=== PATIENT | female | born 1950 | race Caucasian/White ===

== ENCOUNTER 2021-09-24 09:44 | Inpatient (IN) ==
[2021-09-24] MEDS ORDERED: SODIUM CHLORIDE 0.9% 1000ML 1,000 ML IV ONE (10:11)
[2021-09-24 10:21] LABS: Basophils # (auto) 0.02 K/uL (0-0.2); Basophils % (auto) 0.3 %; Eosinophils # (auto) 0.07 K/uL (0-0.5); Eosinophils % (auto) 0.9 %; Hematocrit (blood only) 41.6 % (37-47); Immature Granulocytes # (auto) 0.02 K/uL (0.00-0.02); Immature Granulocytes % (auto) 0.3 %; Lymphocytes % (auto) 24.5 %; Mean Corpuscular Hgb Conc 36.1 g/dL (32-36); Mean Corpuscular Volume 88.7 fL (80-100); Mean Platelet Volume 9.7 fL (7.4-10.4); Monocytes # (auto) 0.38 K/uL (0.11-0.59); Monocytes % (auto) 4.9 %; Neutrophils # (auto) 5.35 K/uL (1.4-6.5); Neutrophils % (auto) 69.1 %; Platelet Count 251 K/uL (130-400); RDW Coefficient of Variation 12.7 % (11.5-14.5); RDW Standard Deviation 40.5 fL (36.4-46.3); Red Blood Count 4.69 M/uL (4.2-5.4); White Blood Count 7.74 K/uL (4.8-10.8)
[2021-09-24 10:47] LABS: Troponin I < 0.03 ng/ml (0-0.04)
[2021-09-24 10:55] LABS: Alanine Aminotransferase 19 U/L (7-52); Albumin Globulin Ratio 1.4 (0.9-2); Albumin Level 4.5 gm/dl (3.4-5.0); Alkaline Phosphatase 76 U/L (34-104); Anion Gap 8 (3-11); Aspartate Aminotransferase 20 U/L (13-39); BUN Creatinine Ratio 21.3 (10-20); Bilirubin,Total 0.4 mg/dl (0.2-1.0); Blood Urea Nitrogen 16 mg/dl (6-23); Calcium 9.7 mg/dl (8.5-10.1); Carbon Dioxide 26 mmol/L (21-32); Chloride 100 mmol/L (98-107); Creatinine Clr Calc Pharmacy 68.3 ml/min; Est GFR (African American) 93.6 ml/min; Est GFR (Non-African American) 80.8 ml/min; Globulin 3.2 gm/dl (2.5-4.0); Glucose 121 mg/dl (70-99(Fasting)); Lipase 65 U/L (11-82); Magnesium 1.7 mg/dl (1.7-2.4); Phosphorus 2.7 mg/dl (2.5-4.9); Potassium 3.8 mmol/L (3.5-5.1); Sodium 134 mmol/L (136-145); Total Protein 7.7 gm/dl (6.0-8.3)
[2021-09-24] MEDS ORDERED: OPTIRAY 320 125ml IV ONE (11:11)
--- NOTE | 2021-09-24 11:14 | XRay Report ---
SINGLE VIEW CHEST CLINICAL HISTORY: Atypical chest pain. FINDINGS: An AP, portable, upright chest radiograph is compared to study dated 06/21/2006. The examin ation is degraded by portable technique and patient rotation. The cardiomediastinal silhouette is unr emarkable noting atherosclerotic calcification of the thoracic aorta. Chronic interstitial thickening is similar to previous. There is mild bibasilar atelectasis. The lungs and pleural spaces are otherw ise clear. No pneumothorax is seen. The skeletal structures are osteopenic. The bony thorax is grossl y intact. IMPRESSION: No acute cardiopulmonary abnormality. ACT 112: Negative or not required by law. Electronically signed by: Nino Edward M.D. 09/24/2021 11:13 AM
--- NOTE | 2021-09-24 11:38 | CT Scan Report ---
UNENHANCED CT OF THE BRAIN; CT ANGIOGRAM OF THE BRAIN; CT ANGIOGRAM OF THE NECK CLINICAL HISTORY: Left-sided facial droop. Left lower extremity weakness. Aphasia. COMPARISON STUDY: MRI and MR angiogram of the brain dated 04/18/2011. TECHNIQUE: Unenhanced axial CT scan of the brain is performed. Subsequently, following the IV adminis tration of 119 of [address], CT angiogram of the head and neck was performed from the aortic arch t o the vertex. Images are reviewed in the axial, sagittal, and coronal planes. 3-D MIPS images are cre ated and assessed. IV contrast was administered without complication. All measurements were calculate d based on NASCET criteria. A dose lowering technique was utilized adhering to the principles of ALA RA. CT DOSE: 1156.25 mGy.cm FINDINGS: Brain parenchyma: There is age-related involutional change noting minimal subcortical periventricular microangiopathic disease. There is loss of elizondo-white matter differentiation identified in the right frontotemporal region consistent with subacute ischemia. This also involves the right caudate head. No hemorrhage or mass effect is identified. There is no evidence of enhancing mass lesion on the tricia ogram phase images. The ventricles, sulci, and cisterns are prominent secondary to involutional alicea e. No extra-axial fluid collection is seen. Thoracic aorta: There is mild atherosclerotic calcification of the thoracic aorta. Visualized portion s of the thoracic aorta are normal in caliber. The aortic arch demonstrates standard 3-vessel anatomy . Right carotid arterial system: There is atherosclerotic plaque throughout the right common carotid ar wilbert. There is slightly less than 50% luminal narrowing of the proximal right common carotid artery s een on axial image #109. The remainder of the right common carotid artery is widely patent. 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 There is high-grade stenosis with only trace flow at the origin of the right external cerrato tid artery. The remainder of the right external carotid artery is patent. Left carotid arterial system: The left common carotid artery is patent. Atherosclerotic plaque causes less than 50% luminal narrowing of the midportion. Atherosclerotic plaque is also seen in the caroti d bulb in the proximal internal carotid artery. This causes less than 50% luminal narrowing of the pr oximal ICA. The remainder of the internal carotid artery is widely patent, as is the left external ca rotid artery. Vertebral arteries: The vertebral arteries are widely patent bilaterally and codominant. Subclavian arteries: Widely patent bilaterally. Intracranial vasculature: There is atherosclerotic calcification of the cavernous carotid arteries. 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 There is reconsti tution of flow below the [place], likely via retrograde flow through the anterior communicat ing artery. The proximal right middle cerebral artery is patent. There are occluded branches of the r ight middle cerebral artery in the right frontotemporal region. The left common carotid artery is wid fidencio patent at the skull base. Both anterior cerebral arteries and the left middle cerebral artery are widely patent. The vertebrobasilar system and posterior cerebral arteries are widely patent. The derek tebral arteries are codominant. No aneurysm is seen throughout the intracranial circulation. Jugular veins: Patent bilaterally. Dural sinuses: Patent. Lung apices: Partially visualized upper lobe lung parenchyma appears clear. Soft tissues: The visualized pharyngeal soft tissues are normal in appearance noting angiographic pha se technique. The oropharyngeal airway appears widely patent. The thyroid gland is atrophic versus goldberg rgically absent. The salivary glands are normal in appearance. No cervical lymphadenopathy is seen. Skeletal structures: The skeletal structures are osteopenic. The calvarium appears intact. The cervic al spine is maintained noting mild spondylosis. No lytic or blastic lesion is seen. Orbits: The bony orbits are intact. Orbital contents are normal as visualized. Sinuses and mastoids: The paranasal sinuses are clear. The mastoid air cells are well pneumatized. IMPRESSION: 1. There is loss of elizondo-white matter differentiation identified in the right frontotemporal region c onsistent with a large subacute right MCA territory infarct. 2. No additional foci of acute ischemia are suspected. There is no hemorrhage or mass effect. 3. 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 This extends from the carotid b ulb to just below the [place] where there is reconstitution via retrograde flow. 4. The proximal right MCA is patent, with occlusion of peripheral peripheral right MCA branches in th e infarcted territory. 5. The remaining intracranial vessels are patent. 6. There is high-grade stenosis with near complete occlusion at the origin of the right external cerrato tid artery. 7. There is no evidence of hemodynamically significant stenosis in the neck within the left carotid s ystem or the vertebral arteries. ACT 112: Negative or not required by law. Electronically signed by: Nino Edward M.D. 09/24/2021 11:36 AM
[2021-09-24 11:47] LABS: Appearance Urine Clear (Clear); Bilirubin Urine Negative (Negative); Blood Urine Negative (Negative); Color Urine Yellow; Glucose Urine UA Negative (Negative); Ketones Urine Negative (Negative); Leukocyte Esterase Urine Negative (Negative); Nitrite Urine Negative (Negative); Protein Urine Negative (Negative); Specific Gravity Urine 1.016 (1.000-1.030); Urobilinogen Urine Negative (Negative)
--- NOTE | 2021-09-24 13:10 | History & Physical Report ---
Date of Service September 24, 2021 Assessment & Plan (1) CVA (cerebral vascular accident): Plan: CVA involving the right MCA territories. We will continue with aspirin 81 mg now and neurology has been consulted. Echocardiogram MRI. A1c as well as lipid profile. Neurochecks every 4. Swallow screen will be conducted. Physical therapy and Occupational Therapy evaluation. We will need to allow permissive hypertension. Otherwise ambulation with assist aspiration and fall precautions. (2) Hypertension, essential: Plan: We will hold patient's triamterene and hydrochlorothiazide to allow for perm issive hypertension. Monitor patient blood pressure closely Plan: 3 - Hypothyroidism Continue with levothyroxine 75 MCG. We will obtain a TSH for the patient as well. #4constipation Continue with home dose MiraLAX Admission and Anticipated Discharge Date Admission Date: September 24, 2021 History of Present Illness Chief Complaint: Slurred speech and stumbling gait Primary Care Provider: Davie Hoyt MD Patient is a 71-year-old female here in the company of her son with a past medical history of hypertension hypothyroidism constipation amaurosis fugax of the right eye presenting after brought in by the patient's son. Patient noted to have slurred speech left-sided facial droop mild weakness of the left lower extremity. Patient evaluated from the stroke standpoint noted to have a significant CVA on the left MCA territory as well as noted to have right ICA stenosis distally on CTA. Otherwise patient last known well 7 PM yesterday evening when per patient was shopping. She had significant headache over her right side of the forehead after which patient went home with her did have mild slowness of her speech however she wanted to sleep it off. She woke up in the morning with worsening slurred speech. Patient wanted to go to work today she drove herself to the [employer] parking lot where her son was able to catch up to her after hearing about patient's symptoms. As per the patient's son patient was severely slurred and had a drunken gait because of this he encouraged her to come to the hospital which patient did. Otherwise patient state that she drank coffee in the morning she did not have any trouble. States that she did notice today in the morning that she was looking to set up decorations and she cannot do that properly from her left upper extremity but she did not did not think much of it. States she just upset her and herself being in the hospital. Denies any associated chest pain lightheadedness palpitations. Denies any nausea vomiting or diarrhea denies any dysuria. States she has ambulated and to her she seems fine. Although noted to be having a drunken gait as per the patient's son at bedside. Discussed with vascular surgery here in [facility] who suggest no active intervention and medical management. Otherwise also discussed with Dr. Merna Mckeon at [facility] from neurology who was suggesting the same the patient will eventually need to follow-up as an outpatient and patient will need medical management currently. Discussed with patient's at bedside as well as patient's son and the patient herself about the current plan and management and are in agreement for further care here in the hospital. Allergies Allergy/AdvReac Type Severity Reaction Status Date / Time meperidine [From Demerol] AdvReac Intermediate Nausea Verified 09/24/21 12:18 Home Medications Medication Instructions Recorded Confirmed Type aspirin 81 mg tablet,delayed 81 mg PO DAILY 09/24/21 09/24/21 History release levothyroxine 75 mcg tablet 75 mcg PO DAILY 09/24/21 09/24/21 History omega-3 fatty acids 1,000 mg PO BID 09/24/21 09/24/21 History polyethylene glycol 3350 17 gram 17 g PO DAILY 09/24/21 09/24/21 History oral powder packet (Miralax) triamcinolone acetonide 0.1 % 1 applic TOPICAL DAILY PRN 09/24/21 09/24/21 History lotion triamterene 37.5 1 cap PO DAILY 09/24/21 09/24/21 History mg-hydrochlorothiazide 25 mg capsule Past Med/Surg History Medical History (Updated 09/24/21 @ 15:54 by Luis Bergeron MD) Constipation HTN (hypertension) Hypothyroidism Family History (Updated 09/24/21 @ 15:25 by Luis Bergeron MD) Father Hypertension Coronary heart disease Mother Stroke Social History (Updated 09/24/21 @ 14:36 by Luis Bergeron MD) Smoking Status: Former smoker Tobacco Type: Cigarettes Feels Safe at Home: Yes Review of Systems Review of Systems: All systems reviewed and negative other than as described in the history and physical above Physical Exam Physical Exam: Constitutional:WD/WN, vitals as abovewith slurred speech noted ENMT: external ear and nose normal, oropharynx normal Neck: trachea midline, no thyromegaly Respiratory: normal respiratory effort, lungs clear to auscultationAuscultation:no rhonchi and no wheezes Cardiovascular:RRR, 2 x 6 systolic ejection murmur most prominent in the aortic area, no edemaHeart Sounds:no murmur Gastrointestinal (Abdomen):normal bowel sounds, soft, nontender, no hepatosplenomegaly Musculoskeletal:no cyanosis or clubbing, extremities motor strength 5/5all extremities except Lt LE 4/5 Skin: no rashes, warm and dry Neurologic: Lt sided static facial droop, bilat, sensation intact and PERRL, EOMI, accommodation nl. Dysarthria noted Psychiatric: A+Ox3, euthymic affect Genitourinary:Not assessed Lymphatic: no cervical or axillary lymphadenopathy Results & Data Results & Data ([facility]) Vital Signs (Past 12 Hours) Vital Signs Temp Pulse Pulse Resp BP BP Pulse Ox 09/24/21 13:00 67 18 156/63 H 100 09/24/21 12:00 68 20 130/69 97 09/24/21 11:45 65 24 136/60 98 09/24/21 11:15 69 20 166/63 H 100 09/24/21 11:09 72 18 163/65 H 09/24/21 10:45 64 20 169/66 H 09/24/21 10:38 66 20 172/85 H 09/24/21 09:50 36.6 C 67 18 168/71 H 100 Laboratory Results Short CBC 09/24/21 Range/Units 10:10 WBC 7.74 (4.8-10.8) K/uL Hgb 15.0 (12.0-16.0) g/dL Hct 41.6 (37-47) % Plt Count 251 (130-400) K/uL BMP 09/24/21 10:10 Sodium 134 L Potassium 3.8 Chloride 100 Carbon Dioxide 26 BUN 16 Creatinine 0.75 Glucose 121 H Calcium 9.7 Cardiac Enzymes 09/24/21 Range/Units 10:10 Troponin I < 0.03 (0-0.04) ng/ml Liver Function 09/24/21 Range/Units 10:10 Total Bilirubin 0.4 (0.2-1.0) mg/dl AST 20 (13-39) U/L ALT 19 (7-52) U/L Alkaline Phosphatase 76 (34-104) U/L Albumin 4.5 (3.4-5.0) gm/dl Urine 09/24/21 Range/Units 11:32 Urine Color Yellow Urine Appearance Clear (Clear) Urine pH 7.0 (4.5-7.5) Ur Specific [place] 1.016 (1.000-1.030) Urine Protein Negative (Negative) Urine Glucose (UA) Negative (Negative) Diagnostic Findings Chest X-Ray 09/24/21 10:06 SINGLE VIEW CHEST CLINICAL HISTORY: Atypical chest pain. FINDINGS: An AP, portable, upright chest radiograph is compared to study dated 08/22/2005. The examination is degraded by portable technique and patient rotation. The cardiomediastinal silhouette is unremarkable noting atherosclerotic calcification of the thoracic aorta. Chronic interstitial thickening is similar to previous. There is mild bibasilar atelectasis. The lungs and pleural spaces are otherwise clear. No pneumothorax is seen. The skeletal structures are osteopenic. The bony thorax is grossly intact. IMPRESSION: No acute cardiopulmonary abnormality. ACT 112: Negative or not required by law. Electronically signed by: Nino Edward M.D. 09/24/2021 11:[address] 09/24/21 10:[address] OF THE BRAIN; CT ANGIOGRAM OF THE BRAIN; CT ANGIOGRAM OF THE NECK CLINICAL HISTORY: Left-sided facial droop. Left lower extremity weakness. Aphasia. COMPARISON STUDY: MRI and MR angiogram of the brain dated 04/18/2011. TECHNIQUE: Unenhanced axial CT scan of the brain is performed. Subsequently, following the IV administration of 119 of Optiray 320, CT angiogram of the head and neck was performed from the aortic arch to the vertex. Images are reviewed in the axial, sagittal, and coronal planes. 3-D MIPS images are created and assessed. IV contrast was administered without complication. All measurements were calculated based on NASCET criteria. A dose lowering technique was utilized adhering to the principles of ALARA. CT DOSE: 1156.25 mGy.cm FINDINGS: Brain parenchyma: There is age-related involutional change noting minimal subcortical periventricular microangiopathic disease. There is loss of elizondo-whi te matter differentiation identified in the right frontotemporal region consistent with subacute ischemia. This also involves the right caudate head. No hemorrhage or mass effect is identified. There is no evidence of enhancing mass lesion on the angiogram phase images. The ventricles, sulci, and cisterns are prominent secondary to involutional change. No extra-axial fluid collection is seen. Thoracic aorta: There is mild atherosclerotic calcification of the thoracic aorta. Visualized portions of the thoracic aorta are normal in caliber. The aortic arch demonstrates standard 3-vessel anatomy. Right carotid arterial system: There is atherosclerotic plaque throughout the right common carotid artery. There is slightly less than 50% luminal narrowing of the proximal right common carotid artery seen on axial image #109. The remainder of the right common carotid artery is widely patent. 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 There is high-grade stenosis with only trace flow at the origin of the right external carotid artery. The remainder of the right external carotid artery is patent. Left carotid arterial system: The left common carotid artery is patent. Atherosclerotic plaque causes less than 50% luminal narrowing of the midportion. Atherosclerotic plaque is also seen in the carotid bulb in the proximal internal carotid artery. This causes less than 50% luminal narrowing of the proximal ICA. The remainder of the internal carotid artery is widely patent, as is the left external carotid artery. Vertebral arteries: The vertebral arteries are widely patent bilaterally and codominant. Subclavian arteries: Widely patent bilaterally. Intracranial vasculature: There is atherosclerotic calcification of the cavernous carotid arteries. 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 There is reconstitution of flow below the [place], likely via retrograde flow through the anterior communicating artery. The proximal right middle cerebral artery is patent. There are occluded branches of the right middle cerebral artery in the right frontotemporal region. The left common carotid artery is widely patent at the skull base. Both anterior cerebral arteries and the left middle cerebral artery are widely patent. The vertebrobasilar system and posterior cerebral arteries are widely patent. The vertebral arteries are codominant. No aneurysm is seen throughout the intracranial circulation. Jugular veins: Patent bilaterally. Dural sinuses: Patent. Lung apices: Partially visualized upper lobe lung parenchyma appears clear. Soft tissues: The visualized pharyngeal soft tissues are normal in appearance noting angiographic phase technique. The oropharyngeal airway appears widely patent. The thyroid gland is atrophic versus surgically absent. The salivary glands are normal in appearance. No cervical lymphadenopathy is seen. Skeletal structures: The skeletal structures are osteopenic. The calvarium appears intact. The cervical spine is maintained noting mild spondylosis. No lytic or blastic lesion is seen. Orbits: The bony orbits are intact. Orbital contents are normal as visualized. Sinuses and mastoids: The paranasal sinuses are clear. The mastoid air cells are well pneumatized. IMPRESSION: 1. There is loss of elizondo-white matter differentiation identified in the right frontotemporal region consistent with a large subacute right MCA territory infarct. 2. No additional foci of acute ischemia are suspected. There is no hemorrhage or mass effect. 3. 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 This extends from the carotid bulb to just below the [place] where there is reconstitution via retrograde flow. 4. The proximal right MCA is patent, with occlusion of peripheral peripheral right MCA branches in the infarcted territory. 5. The remaining intracranial vessels are patent. 6. There is high-grade stenosis with near complete occlusion at the origin of the right external carotid artery. 7. There is no evidence of hemodynamically significant stenosis in the neck w ithin the left carotid system or the vertebral arteries. ACT 112: Negative or not required by law. Electronically signed by: Nino Edward M.D. 09/24/2021 11:36 AM Head CTA 09/24/21 10:[address] OF THE BRAIN; CT ANGIOGRAM OF THE BRAIN; CT ANGIOGRAM OF THE NECK CLINICAL HISTORY: Left-sided facial droop. Left lower extremity weakness. Aphasia. COMPARISON STUDY: MRI and MR angiogram of the brain dated 04/18/2011. TECHNIQUE: Unenhanced axial CT scan of the brain is performed. Subsequently, following the IV administration of 119 of Optiray 320, CT angiogram of the head and neck was performed from the aortic arch to the vertex. Images are reviewed in the axial, sagittal, and coronal planes. 3-D MIPS images are created and assessed. IV contrast was administered without complication. All measurements were calculated based on NASCET criteria. A dose lowering technique was utilized adhering to the principles of ALARA. CT DOSE: 1156.25 mGy.cm FINDINGS: Brain parenchyma: There is age-related involutional change noting minimal subcortical periventricular microangiopathic disease. There is loss of elizondo- white matter differentiation identified in the right frontotemporal region consistent with subacute ischemia. This also involves the right caudate head. No hemorrhage or mass effect is identified. There is no evidence of enhancing mass lesion on the angiogram phase images. The ventricles, sulci, and cisterns are prominent secondary to involutional change. No extra-axial fluid collection is seen. Thoracic aorta: There is mild atherosclerotic calcification of the thoracic aorta. Visualized portions of the thoracic aorta are normal in caliber. The aortic arch demonstrates standard 3-vessel anatomy. Right carotid arterial system: There is atherosclerotic plaque throughout the right common carotid artery. There is slightly less than 50% luminal narrowing of the proximal right common carotid artery seen on axial image #109. The remainder of the right common carotid artery is widely patent. 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 There is high-grade stenosis with only trace flow at the origin of the right external carotid artery. The remainder of the right external carotid artery is patent. Left carotid arterial system: The left common carotid artery is patent. Atherosclerotic plaque causes less than 50% luminal narrowing of the midportion. Atherosclerotic plaque is also seen in the carotid bulb in the proximal internal carotid artery. This causes less than 50% luminal narrowing of the proximal ICA. The remainder of the internal carotid artery is widely patent, as is the left external carotid artery. Vertebral arteries: The vertebral arteries are widely patent bilaterally and codominant. Subclavian arteries: Widely patent bilaterally. Intracranial vasculature: There is atherosclerotic calcification of the cavernous carotid arteries. 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 There is reconstitution of flow below the [place], likely via retrograde flow through the anterior communicating artery. The proximal right middle cerebral artery is patent. There are occluded branches of the right middle cerebral artery in the right frontotemporal region. The left common carotid artery is widely patent at the skull base. Both anterior cerebral arteries and the left middle cerebral artery are widely patent. The vertebrobasilar system and posterior cerebral arteries are widely patent. The vertebral arteries are codominant. No aneurysm is seen throughout the intracranial circulation. Jugular veins: Patent bilaterally. Dural sinuses: Patent. Lung apices: Partially visualized upper lobe lung parenchyma appears clear. Soft tissues: The visualized pharyngeal soft tissues are normal in appearance noting angiographic phase technique. The oropharyngeal airway appears widely patent. The thyroid gland is atrophic versus surgically absent. The salivary glands are normal in appearance. No cervical lymphadenopathy is seen. Skeletal structures: The skeletal structures are osteopenic. The calvarium appears intact. The cervical spine is maintained noting mild spondylosis. No lytic or blastic lesion is seen. Orbits: The bony orbits are intact. Orbital contents are normal as visualized. Sinuses and mastoids: The paranasal sinuses are clear. The mastoid air cells are well pneumatized. IMPRESSION: 1. There is loss of elizondo-white matter differentiation identified in the right frontotemporal region consistent with a large subacute right MCA territory infarct. 2. No additional foci of acute ischemia are suspected. There is no hemorrhage or mass effect. 3. 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 This extends from the carotid bulb to just below the [place] where there is reconstitution via retrograde flow. 4. The proximal right MCA is patent, with occlusion of peripheral peripheral right MCA branches in the infarcted territory. 5. The remaining intracranial vessels are patent. 6. There is high-grade stenosis with near complete occlusion at the origin of the right external carotid artery. 7. There is no evidence of hemodynamically significant stenosis in the neck within the left carotid system or the vertebral arteries. ACT 112: Negative or not required by law. Electronically signed by: Nino Edward M.D. 09/24/2021 11:36 AM Neck CTA 09/24/21 10:[address] OF THE BRAIN; CT ANGIOGRAM OF THE BRAIN; CT ANGIOGRAM OF THE NECK CLINICAL HISTORY: Left-sided facial droop. Left lower extremity weakness. Aphasia. COMPARISON STUDY: MRI and MR angiogram of the brain dated 04/18/2011. TECHNIQUE: Unenhanced axial CT scan of the brain is performed. Subsequently, following the IV administration of 119 of Optiray 320, CT angiogram of the head and neck was performed from the aortic arch to the vertex. Images are reviewed in the axial, sagittal, and coronal planes. 3-D MIPS images are created and assessed. IV contrast was administered without complication. All measurements were calculated based on NASCET criteria. A dose lowering technique was utilized adhering to the principles of ALARA. CT DOSE: 1156.25 mGy.cm FINDINGS: Brain parenchyma: There is age-related involutional change noting minimal subcortical periventricular microangiopathic disease. There is loss of elizondo- white matter differentiation identified in the right frontotemporal region consistent with subacute ischemia. This also involves the right caudate head. No hemorrhage or mass effect is identified. There is no evidence of enhancing mass lesion on the angiogram phase images. The ventricles, sulci, and cisterns are prominent secondary to involutional change. No extra-axial fluid collection is seen. Thoracic aorta: There is mild atherosclerotic calcification of the thoracic aorta. Visualized portions of the thoracic aorta are normal in caliber. The aortic arch demonstrates standard 3-vessel anatomy. Right carotid arterial system: There is atherosclerotic plaque throughout the right common carotid artery. There is slightly less than 50% luminal narrowing of the proximal right common carotid artery seen on axial image #109. The remainder of the right common carotid artery is widely patent. 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 There is high-grade stenosis with only trace flow at the origin of the right external carotid artery. The remainder of the right external carotid artery is patent. Left carotid arterial system: The left common carotid artery is patent. A therosclerotic plaque causes less than 50% luminal narrowing of the midportion. Atherosclerotic plaque is also seen in the carotid bulb in the proximal internal carotid artery. This causes less than 50% luminal narrowing of the proximal ICA. The remainder of the internal carotid artery is widely patent, as is the left external carotid artery. Vertebral arteries: The vertebral arteries are widely patent bilaterally and codominant. Subclavian arteries: Widely patent bilaterally. Intracranial vasculature: There is atherosclerotic calcification of the cavernous carotid arteries. 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 There is reconstitution of flow below the [place], likely via retrograde flow through the anterior communicating artery. The proximal right middle cerebral artery is patent. There are occluded branches of the right middle cerebral artery in the right frontotemporal region. The left common carotid artery is widely patent at the skull base. Both anterior cerebral arteries and the left middle cerebral artery are widely patent. The vertebrobasilar system and posterior cerebral arteries are widely patent. The vertebral arteries are codominant. No aneurysm is seen throughout the intracranial circulation. Jugular veins: Patent bilaterally. Dural sinuses: Patent. Lung apices: Partially visualized upper lobe lung parenchyma appears clear. Soft tissues: The visualized pharyngeal soft tissues are normal in appearance noting angiographic phase technique. The oropharyngeal airway appears widely patent. The thyroid gland is atrophic versus surgically absent. The salivary glands are normal in appearance. No cervical lymphadenopathy is seen. Skeletal structures: The skeletal structures are osteopenic. The calvarium appears intact. The cervical spine is maintained noting mild spondylosis. No lytic or blastic lesion is seen. Orbits: The bony orbits are intact. Orbital contents are normal as visualized. Sinuses and mastoids: The paranasal sinuses are clear. The mastoid air cells are well pneumatized. IMPRESSION: 1. There is loss of elizondo-white matter differentiation identified in the right frontotemporal region consistent with a large subacute right MCA territory infarct. 2. No additional foci of acute ischemia are suspected. There is no hemorrhage or mass effect. 3. 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 This extends from the carotid bulb to just below the [place] where there is reconstitution via retrograde flow. 4. The proximal right MCA is patent, with occlusion of peripheral peripheral right MCA branches in the infarcted territory. 5. The remaining intracranial vessels are patent. 6. There is high-grade stenosis with near complete occlusion at the origin of the right external carotid artery. 7. There is no evidence of hemodynamically significant stenosis in the neck within the left carotid system or the vertebral arteries. ACT 112: Negative or not required by law. Electronically signed by: Nino Edward M.D. 09/24/2021 11:36 AM ECG Additional Comments: NSR at 73 BMP. [address]. No Significant ST-T changes. Code Status & VTE Plan Code Status Full code VTE Prophylaxis Plan VTE Prophylaxis will be ordered: Yes
--- NOTE | 2021-09-24 15:16 | Emergency Department Note ---
Impression & Plan CVA (cerebral vascular accident), HTN (hypertension), Carotid artery stenosis ED Provider Note NAME: EVA ZAMORA AGE: 71 SEX: F ARRIVES VIA: Ambulance INFORMANT: Patient, ED PROVIDER(S): Chilo Cruz MD CHIEF COMPLAINT: Stroke symptoms since last night. PLAN: Disposition: Admit MEDICAL DECISION MAKING: The patient is a pleasant 71-year-old woman with a pmhx of HTN and report of remote right "eye stroke" on daily ASA who presents emergency department for evaluation of strokelike symptoms which were first noticed last night with her last known well being approximately 7 PM. The patient noted to have slurred speech left-sided facial droop around 11 PM by her when he awoke from a nap but despite his urging to come to the hospital she resisted this and went to sleep. In the morning he noted that she continued to have slurred again urged her to come to the hospital but she declined this and wanted to go to work at [facility] [employer] and so drove herself to work. However the contacted the son who called her and also grew concerned because of her continued slurred speech and so EMS was called and met her at [facility] where she ultimately was agreeable to come to the hospital. On arrival the patient is fatigued appearing but no acute distress, afebrile stable vital signs. She appears clinically dry. She does exhibit left lower facial weakness with dysarthria and moderate aphasia. She does have left lower extremity drift with 4/5 strength. Given the patient's last known well was over 12 hours ago a stroke alert was deferred however her CTA of her head and neck were expedited. These did not show evidence of subacute stroke within the right MCA territory. There is no proximal MCA occlusion though peripheral occlusions were noted. Note was also made MARKIE complete thrombosis, RECA stensois. The patient, her , and son were in agreement with plan for admission. EKG without overt acute ischemia. CXR negative for acute cardiopulmonary process. WBC, H/H, platelets wnl. Chemistry without acidosis. Electrolytes unremarkable. LFTs without significant abnormality. Troponin negative/undetectable. TSH wnl. UA without convincing evidence of infection. Covid-19 RNA, NAAT negative. Case was discussed with [facility] PAC, with Dr. Lai Goodrich hospitalist who will evaluate the patient for admission. Triage Nursing notes reviewed and agree them. Prior medical records reviewed Vital Signs: reviewed and remarkable for hypertension. Differential diagnosis: Infection, dehydration, metabolic abnormality, hypo/hyperglycemia, electrolyte disturbance, anemia, hypoxia, cardiac sources, intracerebral event, toxicologic, neurologic, as well as other pathologies. ER treatment provided: See below. Diagnostics interpreted by me: ECG: NSR, 73 bpm, no ectopy, nonspecific TWA, no overt ST elevation or depression. Cardiac Monitoring: An order for continuous cardiac monitoring was placed and demonstrated NSR, 73 bpm, no ectopy. Laboratory studies: See below Imaging studies: See below Consultation(s): Martina tSevens, K[facility] PAC, with Dr. Lai Goodrich hospitalist who will evaluate the patient for admission. HPI: The patient is a pleasant 71-year-old woman with a pmhx of HTN and report of remote right "eye stroke" on daily ASA who presents emergency department for evaluation of strokelike symptoms which were first noticed last night with her last known well being approximately 7 PM. The patient noted to have slurred speech left-sided facial droop around 11 PM by her when he awoke from a nap but despite his urging to come to the hospital she resisted this and went to sleep. In the morning he noted that she continued to have slurred again urged her to come to the hospital but she declined this and wanted to go to work at [employer] and so drove herself to work. However the contacted the son who called her and also grew concerned because of her continued slurred speech and so EMS was called and met her at [facility] where she ultimately was agreeable to come to the hospital. ROS: See above HPI for pertinent positives & negatives. A total of 10 systems reviewed and were otherwise negative. VITALS:See Below PHYSICAL EXAMINATION: GENERAL: Awake, alert, fatigued-appearing, in no distress HENT: Normocephalic, atraumatic. Oropharynx with dry mucous membranes and otherwise unremarkable. EYES: Normal conjunctiva. Sclera non-icteric. EOMI. No nystamgus. PEARRL. NECK: Supple. No nuchal rigidity. FROM. No JVD. RESPIRATORY: Clear to auscultation. CARDIAC: Regular rate, normal rhythm. Extremities warm and well perfused. Pulses equal. ABDOMEN: Soft, non-distended. No tenderness to palpation. No rebound or guarding. No masses. RECTAL: Deferred. MUSCULOSKELETAL: Chest examination reveals no tenderness. The back is symmetrical on inspection without obvious abnormality. There is no CVA tenderness to palpation. No joint edema. LOWER EXTREMITIES: Calves are equal size bilaterally and non-tender. No edema. No discoloration. NEURO: Left lower facial weakness/droop with mild dysarthria. Mild aphasia/word finding difficulty. She does have left lower extremity drift with 4/5 strength. SKIN: No rash or jaundice noted. Chilo Cruz MD Past Med/Surg History Medical History Constipation HTN (hypertension) Hypothyroidism Family History Father Hypertension Coronary heart disease Mother Stroke Social History Smoking Status: Former smoker Tobacco Type: Cigarettes Hx Alcohol Use: No Hx Substance Use: No Preferred Language: Sami Communication Ability: Impaired Trouble Tracer Required: No Beliefs That Will Affect Care: None Current Living Situation: Spouse Current Living Situation Comment: lives with spouse- oleg Feels Safe at Home: Yes Safety Concerns: Feels Safe At This Time Assistive Devices: Glasses Allergies Allergies Allergy/AdvReac Type Severity Reaction Status Date / Time meperidine [From Demerol] AdvReac Intermediate Nausea Verified 09/24/21 12:18 Home Meds Home Medications Medication Instructions Recorded Confirmed aspirin 81 mg tablet,delayed 81 mg PO DAILY 09/24/21 09/24/21 release levothyroxine 75 mcg tablet 75 mcg PO DAILY 09/24/21 09/24/21 omega-3 fatty acids 1,000 mg PO BID 09/24/21 09/24/21 polyethylene glycol 3350 17 gram 17 g PO DAILY 09/24/21 09/24/21 oral powder packet (Miralax) triamcinolone acetonide 0.1 % 1 applic TOPICAL DAILY PRN 09/24/21 09/24/21 lotion triamterene 37.5 1 cap PO DAILY 09/24/21 09/24/21 mg-hydrochlorothiazide 25 mg capsule Results & Data (ED) Vital Signs Vital Signs - 24 hr 09/24/21 09:50 09/24/21 09:52 09/24/21 10:38 Temperature 36.6 C Temperature Source Oral Pulse Rate 67 66 Pulse Rate from SpO2 Sensor Pulse Rhythm Regular Pulse Strength Normal Respiratory Rate 18 20 Respiratory Effort / Characteristics Non-Labored Respiratory Depth Normal Respiratory Pattern Regular Blood Pressure 168/71 H 172/85 H Blood Pressure Mean 103 114 Blood Pressure Position Sitting Pulse Oximetry 100 Oxygen Delivery Method Room Air Room Air Sepsis Recent Fever Within 48 Hours No Sepsis New/Unexplained Change in Mental Status No Sepsis Action Taken by Nursing No Action Required 09/24/21 10:45 09/24/21 11:09 09/24/21 11:15 Temperature Temperature Source Pulse Rate 64 72 69 Pulse Rate from SpO2 Sensor 69 Pulse Rhythm Pulse Strength Respiratory Rate 20 18 20 Respiratory Effort / Characteristics Respiratory Depth Respiratory Pattern Blood Pressure 169/66 H 163/65 H 166/63 H Blood Pressure Mean 100 97 97 Blood Pressure Position Pulse Oximetry 100 Oxygen Delivery Method Sepsis Recent Fever Within 48 Hours Sepsis New/Unexplained Change in Mental Status Sepsis Action Taken by Nursing 09/24/21 11:45 09/24/21 12:00 Temperature Temperature Source Pulse Rate 65 68 Pulse Rate from SpO2 Sensor 65 67 Pulse Rhythm Pulse Strength Respiratory Rate 24 20 Respiratory Effort / Characteristics Respiratory Depth Respiratory Pattern Blood Pressure 136/60 130/69 Blood Pressure Mean 85 89 Blood Pressure Position Pulse Oximetry 98 97 Oxygen Delivery Method Sepsis Recent Fever Within 48 Hours Sepsis New/Unexplained Change in Mental Status Sepsis Action Taken by Nursing Laboratory Data Attestation: I reviewed the patient's lab results. Result diagrams: 09/24/21 10:10 09/24/21 10:10 Lab Results 09/24/21 09/24/21 09/24/21 Range/Units 10:10 10:10 10:10 WBC 7.74 (4.8-10.8) K/uL RBC 4.69 (4.2-5.4) M/uL Hgb 15.0 (12.0-16.0) g/dL Hct 41.6 (37-47) % MCV 88.7 (80-100) fL MCH 32.0 (25-34) pg MCHC 36.1 H (32-36) g/dL RDW Std Deviation 40.5 (36.4-46.3) fL RDW Coeff of Jose Martin 12.7 (11.5-14.5) % Plt Count 251 (130-400) K/uL MPV 9.7 (7.4-10.4) fL Immature Gran % (Auto) 0.3 % Neut % (Auto) 69.1 % Lymph % (Auto) 24.5 % [place] % (Auto) 4.9 % Eos % (Auto) 0.9 % Baso % (Auto) 0.3 % Neut # (Auto) 5.35 (1.4-6.5) K/uL Lymph # (Auto) 1.90 (1.2-3.4) K/uL [place] # (Auto) 0.38 (0.11-0.59) K/uL Eos # (Auto) 0.07 (0-0.5) K/uL Baso # (Auto) 0.02 (0-0.2) K/uL Immature Gran # (Auto) 0.02 (0.00-0.02) K/uL Sodium 134 L (136-145) mmol/L Potassium 3.8 (3.5-5.1) mmol/L Chloride 100 (98-107) mmol/L Carbon Dioxide 26 (21-32) mmol/L Anion Gap 8 (3-11) BUN 16 (6-23) mg/dl Creatinine 0.75 (0.6-1.2) mg/dl Est Cr Clr Drug Dosing 68.3 ml/min Est GFR ( Amer) 93.6 ml/min Est GFR (Non-Af Amer) 80.8 ml/min BUN/Creatinine Ratio 21.3 H (10-20) Glucose 121 H (70-99(Fasting)) mg/dl Calcium 9.7 (8.5-10.1) mg/dl Phosphorus 2.7 (2.5-4.9) mg/dl Magnesium 1.7 (1.7-2.4) mg/dl Total Bilirubin 0.4 (0.2-1.0) mg/dl AST 20 (13-39) U/L ALT 19 (7-52) U/L Alkaline Phosphatase 76 (34-104) U/L Troponin I < 0.03 (0-0.04) ng/ml Total Protein 7.7 (6.0-8.3) gm/dl Albumin 4.5 (3.4-5.0) gm/dl Globulin 3.2 (2.5-4.0) gm/dl Albumin/Globulin Ratio 1.4 (0.9-2) Lipase 65 (11-82) U/L TSH 1.145 (0.300-4.500) uIu/ml Urine Color Urine Appearance (Clear) Urine pH (4.5-7.5) Ur Specific [place] (1.000-1.030) Urine Protein (Negative) Urine Glucose (UA) (Negative) Urine Ketones (Negative) Urine Blood (Negative) Urine Nitrite (Negative) Urine Bilirubin (Negative) Urine Urobilinogen (Negative) Ur Leukocyte Esterase (Negative) SARS-CoV-2, RNA, NAAT (NEGATIVE) 09/24/21 09/24/21 Range/Units 11:32 12:55 WBC (4.8-10.8) K/uL RBC (4.2-5.4) M/uL Hgb (12.0-16.0) g/dL Hct (37-47) % MCV (80-100) fL MCH (25-34) pg MCHC (32-36) g/dL RDW Std Deviation (36.4-46.3) fL RDW Coeff of Jose Martin (11.5-14.5) % Plt Count (130-400) K/uL MPV (7.4-10.4) fL Immature Gran % (Auto) % Neut % (Auto) % Lymph % (Auto) % [place] % (Auto) % Eos % (Auto) % Baso % (Auto) % Neut # (Auto) (1.4-6.5) K/uL Lymph # (Auto) (1.2-3.4) K/uL [place] # (Auto) (0.11-0.59) K/uL Eos # (Auto) (0-0.5) K/uL Baso # (Auto) (0-0.2) K/uL Immature Gran # (Auto) (0.00-0.02) K/uL Sodium (136-145) mmol/L Potassium (3.5-5.1) mmol/L Chloride (98-107) mmol/L Carbon Dioxide (21-32) mmol/L Anion Gap (3-11) BUN (6-23) mg/dl Creatinine (0.6-1.2) mg/dl Est Cr Clr Drug Dosing ml/min Est GFR ( Amer) ml/min Est GFR (Non-Af Amer) ml/min BUN/Creatinine Ratio (10-20) Glucose (70-99(Fasting)) mg/dl Calcium (8.5-10.1) mg/dl Phosphorus (2.5-4.9) mg/dl Magnesium (1.7-2.4) mg/dl Total Bilirubin (0.2-1.0) mg/dl AST (13-39) U/L ALT (7-52) U/L Alkaline Phosphatase (34-104) U/L Troponin I (0-0.04) ng/ml Total Protein (6.0-8.3) gm/dl Albumin (3.4-5.0) gm/dl Globulin (2.5-4.0) gm/dl Albumin/Globulin Ratio (0.9-2) Lipase (11-82) U/L TSH (0.300-4.500) uIu/ml Urine Color Yellow Urine Appearance Clear (Clear) Urine pH 7.0 (4.5-7.5) Ur Specific [place] 1.016 (1.000-1.030) Urine Protein Negative (Negative) Urine Glucose (UA) Negative (Negative) Urine Ketones Negative (Negative) Urine Blood Negative (Negative) Urine Nitrite Negative (Negative) Urine Bilirubin Negative (Negative) Urine Urobilinogen Negative (Negative) Ur Leukocyte Esterase Negative (Negative) SARS-CoV-2, RNA, NAAT NEGATIVE (NEGATIVE) Administered Medications Fish Oil ([place]-3 (Purified Fish Oil) 1 Gm Cap) 1 gm PO BID TOÑA Stop: 10/24/21 20:59 Last Admin: 09/24/21 20:39 Dose: Not Given Documented by: [id number] Sodium Chloride (Nss 1000ml) 1,000 mls @ 80 mls/hr IV .[id number] TOÑA Stop: 09/25/21 12:30 Last Admin: 09/24/21 18:32 Dose: 80 mls/hr Documented by: [id number] Discontinued Medications Aspirin (Aspirin 81 Mg Chew) 81 mg PO NOW STA Stop: 09/24/21 16:09 Last Admin: 09/24/21 16:26 Dose: 81 mg Documented by: [id number] Sodium Chloride (Nss 1000ml) 1,000 mls @ 999 mls/hr IV .[id number] ONE Stop: 09/24/21 11:11 Last Infusion: 09/24/21 11:22 Dose: 999 mls/hr Documented by: [id number] Admin: 09/24/21 10:21 Dose: 999 mls/hr Documented by: [id number] Ioversol (Optiray 320 125ml) 119 ml IV ONCE ONE Stop: 09/24/21 11:12 Last Admin: 09/24/21 11:11 Dose: 119 ml Documented by: [id number] Imaging Data Radiologist's Impression: Chest X-Ray 09/24/21 10:06 SINGLE VIEW CHEST CLINICAL HISTORY: Atypical chest pain. FINDINGS: An AP, portable, upright chest radiograph is compared to study dated 06/21/2006. The examination is degraded by portable technique and patient rotation. The cardiomediastinal silhouette is unremarkable noting atherosclerotic calcification of the thoracic aorta. Chronic interstitial thickening is similar to previous. There is mild bibasilar atelectasis. The lungs and pleural spaces are otherwise clear. No pneumothorax is seen. The skeletal structures are osteopenic. The bony thorax is grossly intact. IMPRESSION: No acute cardiopulmonary abnormality. ACT 112: Negative or not required by law. Electronically signed by: Nino Edward M.D. 09/24/2021 11:[address] 09/24/21 10:[address] OF THE BRAIN; CT ANGIOGRAM OF THE BRAIN; CT ANGIOGRAM OF THE NECK CLINICAL HISTORY: Left-sided facial droop. Left lower extremity weakness. Aphasia. COMPARISON STUDY: MRI and MR angiogram of the brain dated 04/18/2011. TECHNIQUE: Unenhanced axial CT scan of the brain is performed. Subsequently, following the IV administration of 119 of Optiray 320, CT angiogram of the head and neck was performed from the aortic arch to the vertex. Images are reviewed in the axial, sagittal, and coronal planes. 3-D MIPS images are created and assessed. IV contrast was administered without complication. All measurements were calculated based on NASCET criteria. A dose lowering technique was utilized adhering to the principles of ALARA. CT DOSE: 1156.25 mGy.cm FINDINGS: Brain parenchyma: There is age-related involutional change noting minimal subcor tical periventricular microangiopathic disease. There is loss of elizondo-white matter differentiation identified in the right frontotemporal region consistent with subacute ischemia. This also involves the right caudate head. No hemorrhage or mass effect is identified. There is no evidence of enhancing mass lesion on the angiogram phase images. The ventricles, sulci, and cisterns are prominent secondary to involutional change. No extra-axial fluid collection is seen. Thoracic aorta: There is mild atherosclerotic calcification of the thoracic aorta. Visualized portions of the thoracic aorta are normal in caliber. The aortic arch demonstrates standard 3-vessel anatomy. Right carotid arterial system: There is atherosclerotic plaque throughout the right common carotid artery. There is slightly less than 50% luminal narrowing of the proximal right common carotid artery seen on axial image #109. The remainder of the right common carotid artery is widely patent. 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 There is high-grade stenosis with only trace flow at the origin of the right external carotid artery. The remainder of the right external carotid artery is patent. Left carotid arterial system: The left common carotid artery is patent. Atherosclerotic plaque causes less than 50% luminal narrowing of the midportion. Atherosclerotic plaque is also seen in the carotid bulb in the proximal internal carotid artery. This causes less than 50% luminal narrowing of the proximal ICA. The remainder of the internal carotid artery is widely patent, as is the left external carotid artery. Vertebral arteries: The vertebral arteries are widely patent bilaterally and codominant. Subclavian arteries: Widely patent bilaterally. Intracranial vasculature: There is atherosclerotic calcification of the cavernous carotid arteries. 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 There is reconstitution of flow below the [place], likely via retrograde flow through the anterior communicating artery. The proximal right middle cerebral artery is patent. There are occluded branches of the right middle cerebral artery in the right frontotemporal region. The left common carotid artery is widely patent at the skull base. Both anterior cerebral arteries and the left middle cerebral artery are widely patent. The vertebrobasilar system and posterior cerebral arteries are widely patent. The vertebral arteries are codominant. No aneurysm is seen throughout the intracranial circulation. Jugular veins: Patent bilaterally. Dural sinuses: Patent. Lung apices: Partially visualized upper lobe lung parenchyma appears clear. Soft tissues: The visualized pharyngeal soft tissues are normal in appearance noting angiographic phase technique. The oropharyngeal airway appears widely patent. The thyroid gland is atrophic versus surgically absent. The salivary glands are normal in appearance. No cervical lymphadenopathy is seen. Skeletal structures: The skeletal structures are osteopenic. The calvarium appears intact. The cervical spine is maintained noting mild spondylosis. No lytic or blastic lesion is seen. Orbits: The bony orbits are intact. Orbital contents are normal as visualized. Sinuses and mastoids: The paranasal sinuses are clear. The mastoid air cells are well pneumatized. IMPRESSION: 1. There is loss of elizondo-white matter differentiation identified in the right frontotemporal region consistent with a large subacute right MCA territory infarct. 2. No additional foci of acute ischemia are suspected. There is no hemorrhage or mass effect. 3. 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 This extends from the carotid bulb to just below the [place] where there is reconstitution via retrograde flow. 4. The proximal right MCA is patent, with occlusion of peripheral peripheral right MCA branches in the infarcted territory. 5. The remaining intracranial vessels are patent. 6. There is high-grade stenosis with near complete occlusion at the origin of the right external carotid artery. 7. There is no evidence of hemodynamically significant stenosis in the neck within the left carotid system or the vertebral arteries. ACT 112: Negative or not required by law. Electronically signed by: Nino Edward M.D. 09/24/2021 11:36 AM Head CTA 09/24/21 10:[address] OF THE BRAIN; CT ANGIOGRAM OF THE BRAIN; CT ANGIOGRAM OF THE NECK CLINICAL HISTORY: Left-sided facial droop. Left lower extremity weakness. Aphasia. COMPARISON STUDY: MRI and MR angiogram of the brain dated 04/18/2011. TECHNIQUE: Unenhanced axial CT scan of the brain is performed. Subsequently, following the IV administration of 119 of Optiray 320, CT angiogram of the head and neck was performed from the aortic arch to the vertex. Images are reviewed in the axial, sagittal, and coronal planes. 3-D MIPS images are created and assessed. IV contrast was administered without complication. All measurements were calculated based on NASCET criteria. A dose lowering technique was utilized adhering to the principles of ALARA. CT DOSE: 1156.25 mGy.cm FINDINGS: Brain parenchyma: There is age-related involutional change noting minimal subcortical periventricular microangiopathic disease. There is loss of elizondo- white matter differentiation identified in the right frontotemporal region consistent with subacute ischemia. This also involves the right caudate head. No hemorrhage or mass effect is identified. There is no evidence of enhancing mass lesion on the angiogram phase images. The ventricles, sulci, and cisterns are prominent secondary to involutional change. No extra-axial fluid collection is seen. Thoracic aorta: There is mild atherosclerotic calcification of the thoracic aorta. Visualized portions of the thoracic aorta are normal in caliber. The aortic arch demonstrates standard 3-vessel anatomy. Right carotid arterial system: There is atherosclerotic plaque throughout the right common carotid artery. There is slightly less than 50% luminal narrowing of the proximal right common carotid artery seen on axial image #109. The remainder of the right common carotid artery is widely patent. 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 There is high-grade stenosis with only trace flow at the origin of the right external carotid artery. The remainder of the right external carotid artery is patent. Left carotid arterial system: The left common carotid artery is patent. Atherosclerotic plaque causes less than 50% luminal narrowing of the midportion. Atherosclerotic plaque is also seen in the carotid bulb in the proximal internal carotid artery. This causes less than 50% luminal narrowing of the proximal ICA. The remainder of the internal carotid artery is widely patent, as is the left external carotid artery. Vertebral arteries: The vertebral arteries are widely patent bilaterally and codominant. Subclavian arteries: Widely patent bilaterally. Intracranial vasculature: There is atherosclerotic calcification of the cav ernous carotid arteries. 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 There is reconstitution of flow below the [place], likely via retrograde flow through the anterior communicating artery. The proximal right middle cerebral artery is patent. There are occluded branches of the right middle cerebral artery in the right frontotemporal region. The left common carotid artery is widely patent at the skull base. Both anterior cerebral arteries and the left middle cerebral artery are widely patent. The vertebrobasilar system and posterior cerebral arteries are widely patent. The vertebral arteries are codominant. No aneurysm is seen throughout the i ntracranial circulation. Jugular veins: Patent bilaterally. Dural sinuses: Patent. Lung apices: Partially visualized upper lobe lung parenchyma appears clear. Soft tissues: The visualized pharyngeal soft tissues are normal in appearance noting angiographic phase technique. The oropharyngeal airway appears widely patent. The thyroid gland is atrophic versus surgically absent. The salivary glands are normal in appearance. No cervical lymphadenopathy is seen. Skeletal structures: The skeletal structures are osteopenic. The calvarium appears intact. The cervical spine is maintained noting mild spondylosis. No lytic or blastic lesion is seen. Orbits: The bony orbits are intact. Orbital contents are normal as visualized. Sinuses and mastoids: The paranasal sinuses are clear. The mastoid air cells are well pneumatized. IMPRESSION: 1. There is loss of elizondo-white matter differentiation identified in the right frontotemporal region consistent with a large subacute right MCA territory infarct. 2. No additional foci of acute ischemia are suspected. There is no hemorrhage or mass effect. 3. 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 This extends from the carotid bulb to just below the [place] where there is reconstitution via retrograde flow. 4. The proximal right MCA is patent, with occlusion of peripheral peripheral right MCA branches in the infarcted territory. 5. The remaining intracranial vessels are patent. 6. There is high-grade stenosis with near complete occlusion at the origin of the right external carotid artery. 7. There is no evidence of hemodynamically significant stenosis in the neck within the left carotid system or the vertebral arteries. ACT 112: Negative or not required by law. Electronically signed by: Nino Edward M.D. 09/24/2021 11:36 AM Neck CTA 09/24/21 10:[address] OF THE BRAIN; CT ANGIOGRAM OF THE BRAIN; CT ANGIOGRAM OF THE NECK CLINICAL HISTORY: Left-sided facial droop. Left lower extremity weakness. Aphasia. COMPARISON STUDY: MRI and MR angiogram of the brain dated 04/18/2011. TECHNIQUE: Unenhanced axial CT scan of the brain is performed. Subsequently, following the IV administration of 119 of Optiray 320, CT angiogram of the head and neck was performed from the aortic arch to the vertex. Images are reviewed in the axial, sagittal, and coronal planes. 3-D MIPS images are created and assessed. IV contrast was administered without complication. All measurements were calculated based on NASCET criteria. A dose lowering technique was utilized adhering to the principles of ALARA. CT DOSE: 1156.25 mGy.cm FINDINGS: Brain parenchyma: There is age-related involutional change noting minimal subcortical periventricular microangiopathic disease. There is loss of elizondo- white matter differentiation identified in the right frontotemporal region consistent with subacute ischemia. This also involves the right caudate head. No hemorrhage or mass effect is identified. There is no evidence of enhancing mass lesion on the angiogram phase images. The ventricles, sulci, and cisterns are prominent secondary to involutional change. No extra-axial fluid collection is seen. Thoracic aorta: There is mild atherosclerotic calcification of the thoracic aorta. Visualized portions of the thoracic aorta are normal in caliber. The aortic arch demonstrates standard 3-vessel anatomy. Right carotid arterial system: There is atherosclerotic plaque throughout the right common carotid artery. There is slightly less than 50% luminal narrowing of the proximal right common carotid artery seen on axial image #109. The remainder of the right common carotid artery is widely patent. 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 There is high-grade stenosis with only trace flow at the origin of the right external carotid artery. The remainder of the right external carotid artery is patent. Left carotid arterial system: The left common carotid artery is patent. Atherosclerotic plaque causes less than 50% luminal narrowing of the midportion. Atherosclerotic plaque is also seen in the carotid bulb in the proximal internal carotid artery. This causes less than 50% luminal narrowing of the proximal ICA. The remainder of the internal carotid artery is widely patent, as is the left external carotid artery. Vertebral arteries: The vertebral arteries are widely patent bilaterally and codominant. Subclavian arteries: Widely patent bilaterally. Intracranial vasculature: There is atherosclerotic calcification of the cavernous carotid arteries. 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 There is reconstitution of flow below the [place], likely via retrograde flow through the anterior communicating artery. The proximal right middle cerebral artery is patent. There are occluded branches of the right middle cerebral artery in the right frontotemporal region. The left common carotid artery is widely patent at the skull base. Both anterior cerebral arteries and the left middle cerebral artery are widely patent. The vertebrobasilar system and posterior cerebral arteries are widely patent. The vertebral arteries are codominant. No aneurysm is seen throughout the intracranial circulation. Jugular veins: Patent bilaterally. Dural sinuses: Patent. Lung apices: Partially visualized upper lobe lung parenchyma appears clear. Soft tissues: The visualized pharyngeal soft tissues are normal in appearance noting angiographic phase technique. The oropharyngeal airway appears widely patent. The thyroid gland is atrophic versus surgically absent. The salivary glands are normal in appearance. No cervical lymphadenopathy is seen. Skeletal structures: The skeletal structures are osteopenic. The calvarium appears intact. The cervical spine is maintained noting mild spondylosis. No lytic or blastic lesion is seen. Orbits: The bony orbits are intact. Orbital contents are normal as visualized. Sinuses and mastoids: The paranasal sinuses are clear. The mastoid air cells are well pneumatized. IMPRESSION: 1. There is loss of elizondo-white matter differentiation identified in the right frontotemporal region consistent with a large subacute right MCA territory i nfarct. 2. No additional foci of acute ischemia are suspected. There is no hemorrhage or mass effect. 3. 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 This extends from the carotid bulb to just below the [place] where there is reconstitution via retrograde flow. 4. The proximal right MCA is patent, with occlusion of peripheral peripheral right MCA branches in the infarcted territory. 5. The remaining intracranial vessels are patent. 6. There is high-grade stenosis with near complete occlusion at the origin of the right external carotid artery. 7. There is no evidence of hemodynamically significant stenosis in the neck within the left carotid system or the vertebral arteries. ACT 112: Negative or not required by law. Electronically signed by: Nino Edward M.D. 09/24/2021 11:36 AM Discharge Plan Visit Data Chief Complaint: Stroke/CVA Symptoms Stated Complaint: NUERO SX, STROKE SX ED Provider: Chilo Cruz Discharge Problem: CVA (cerebral vascular accident), HTN (hypertension), Carotid artery stenosis Patient Disposition: Admitted As Inpatient Discharge Instructions Interventions: ED Discharge Assessment Last Done: 09/24/21 16:28 Discharge Problem: CVA (cerebral vascular accident) Qualifiers: CVA mechanism: other Qualified Code(s): I63.89 - Other cerebral infarction HTN (hypertension) Qualifiers: Hypertension type: unspecified Qualified Code(s): I10 - Essential (primary) hypertension Carotid artery stenosis Qualifiers: Laterality: right Qualified Code(s): I65.21 - Occlusion and stenosis of right carotid artery
[2021-09-24] MEDS ORDERED: ASPIRIN 81 MG CHEW PO STA (16:08)
[2021-09-24] MEDS ORDERED: MAGNESIUM HYDROXIDE SUSP 30 ML UDC PO PRN (17:16)
[2021-09-24] MEDS ORDERED: POLYETHYLENE (MIRALAX) 17 GM PACK PO PRN (17:16)
[2021-09-24] MEDS ORDERED: ACETAMINOPHEN 325 MG TAB PO PRN (17:16)
[2021-09-24] MEDS ORDERED: ALUMINUM/MAGNESIUM SUSP 30 ML UDC PO PRN (17:16)
[2021-09-24] MEDS: SODIUM CHLORIDE 0.9% 1000ML 1,000 ML IV SCH (18:32)
[2021-09-24] MEDS: LORazepam 2 MG/1 ML VIAL IV STA ×2 (19:50→21:36)
[2021-09-24] MEDS: OMEGA-3 (PURIFIED FISH OIL) 1 GM CAP PO SCH (20:39)
[2021-09-24] MEDS ORDERED: CLOPIDOGREL BISULFATE 75 MG TAB PO ONE (20:47)
[2021-09-24] MEDS ORDERED: ASPIRIN 300 MG SUPP PR STA (21:06)
[2021-09-25] MEDS: LEVOTHYROXINE SODIUM 75 MCG TABLET PO SCH (05:30)
[2021-09-25 06:44] LABS: Basophils # (auto) 0.02 K/uL (0-0.2); Basophils % (auto) 0.3 %; Eosinophils # (auto) 0.07 K/uL (0-0.5); Hemoglobin 12.6 g/dL (12.0-16.0); Immature Granulocytes # (auto) 0.01 K/uL (0.00-0.02); Immature Granulocytes % (auto) 0.1 %; Lymphocytes # (auto) 1.87 K/uL (1.2-3.4); Mean Corpuscular Hemoglobin 31.5 pg (25-34); Mean Platelet Volume 9.9 fL (7.4-10.4); Monocytes # (auto) 0.36 K/uL (0.11-0.59); Neutrophils # (auto) 4.85 K/uL (1.4-6.5); Neutrophils % (auto) 67.6 %; Platelet Count 240 K/uL (130-400); RDW Coefficient of Variation 12.6 % (11.5-14.5); RDW Standard Deviation 41.8 fL (36.4-46.3); White Blood Count 7.18 K/uL (4.8-10.8)
[2021-09-25 07:54] LABS: Albumin Globulin Ratio 1.5 (0.9-2); Albumin Level 3.5 gm/dl (3.4-5.0); BUN Creatinine Ratio 22.4 (10-20); Bilirubin,Total 0.5 mg/dl (0.2-1.0); Calcium 8.5 mg/dl (8.5-10.1); Chol HDL Ratio 4.4 (0-5); Creatinine Clr Calc Pharmacy 86.4 ml/min; Est GFR (African American) 108.2 ml/min; Est GFR (Non-African American) 93.4 ml/min; Globulin 2.4 gm/dl (2.5-4.0); Magnesium 1.7 mg/dl (1.7-2.4); Potassium 3.6 mmol/L (3.5-5.1); Total Protein 5.9 gm/dl (6.0-8.3)
[2021-09-25 07:58] LABS: Estimated Average Glucose 126 mg/dl
--- NOTE | 2021-09-25 08:47 | Magnetic Resonance Report ---
MR brain wo con CLINICAL HISTORY: CVA TECHNIQUE: Multiplanar and multisequence MR images of the brain were obtained without intravenous con trast. Comparison: Comparison is made to CT head 09/24/2021 FINDINGS: Resected diffusion is seen in the right MCA territory. There is associated edema and mass effect with out evidence of midline shift. Ex vacuo ventriculomegaly and sulcal enlargement is noted compatible w ith diffuse encephalomalacia. There is no evidence of acute intraparenchymal hemorrhage. No extra axi al fluid collections are seen. The corpus callosum, pituitary gland, and cerebellar tonsils appear gr ossly unremarkable. Flow voids of the major intracranial arterial vessels are identified. The imaged portions of the para nasal sinuses, mastoid air cells, and orbits are unremarkable. IMPRESSION: Redemonstration of large MCA territory infarct without hemorrhagic transformation. ACT 112: Negative or not required by law. Electronically signed by: Conner Craven M.D. 09/25/2021 8:45 AM
[2021-09-25] MEDS: OMEGA-3 (PURIFIED FISH OIL) 1 GM CAP PO SCH ×2 (08:56→20:46)
[2021-09-25] MEDS: POLYETHYLENE (MIRALAX) 17 GM PACK PO SCH (08:56)
[2021-09-25] MEDS: SODIUM CHLORIDE 0.9% 1000ML 1,000 ML IV SCH (08:57)
[2021-09-25] MEDS ORDERED: CLOPIDOGREL BISULFATE 75 MG TAB PO SCH (09:00)
[2021-09-25] MEDS ORDERED: ASPIRIN 300 MG SUPP PR SCH (09:00)
[2021-09-25] MEDS ORDERED: ASPIRIN 81 MG ECTAB PO SCH (09:00)
--- NOTE | 2021-09-25 11:11 | Neurology Consultation ---
Date of Consultation September 25, 2021 Assessment & Plan (1) CVA (cerebral vascular accident): 1. MRI -large MCA stroke right 2. CTA head/neck with occlusion of right MCA branches 3. aspirin 81 mg and plavix 75 mg daily x 21 days then plavix for life 4. PT/OT speech for discharge needs 5. TTE- 60-65% no ASD 6. ZIO as outpatient 7. optimize HTN HLD DM LDL <70 follow up with neurology 4-6 weeks after discharge Frida Cook PAC schedule (2) Carotid artery stenosis: (3) HTN (hypertension): Supervising Physician Co-Signing Physician Notes I have seen and discussed above patient with Dr Frida Novoa, neurology. On exam she is awake and alert speech and language are normal no dysarthria naming repetition and commands are normal. There is right ptosis without myosis or mydriasis. Cannot reliably visualize the optic nerves. Motility was normal there is normal howell no visual extinction there is an minor flattening of the left nasolabial fold. Motor left upper extremity diffusely about 4 out of 5 with minor left drift and decreased left rapid alternating movements query minimal weakness of the left lower extremity. Symmetric reflexes left toe upgoing. No sensory loss to light touch no double simultaneous extinction. No calf swelling or tenderness. Impression right carotid occlusion with right anterior division MCA infarction. Continue risk factor modification. Dual antiplatelet therapy with aspirin and Plavix for 21 days then Plavix alone avoid hypotension. Recommend statin therapy with goal LDL of 70 or less. ZIO as an outpatient. Her she will need periodic ultrasound likely yearly to exclude left internal carotid stenosis. There is no evidence of carotid stenosis at present. The patient should see us in follow-up post discharge. I would recommend that she not return to driving until seen by us in the office and cleared by ophthalmology given that she could have some visual neglect. Will sign off Frdia Novoa MD History of Present Illness Reason for Consultation: CVA Requesting Physician: Natalio Anna MD Attending Physician: Natalio Anna MD History of Present Illness Mallory is a 71 year old female with a PMH-HTN, hypothyroidism, constipation, amaurosis fugax of the right eye who presented to [facility] ED 09/24/21. She had slurred speech left-sided facial droop mild weakness of the left lower extremity. Last known well 7 PM the evening prior to admission she was shopping. She had significant headache over her right side of the forehead and went home with her did have mild slowness of her speech however she wanted to sleep it off. She woke up in the morning with worsening slurred speech.She wanted to go to work today she drove herself to the [employer] parking lot where her son was able to catch up to her after hearing about patient's symptoms.She was severely slurred and had a drunken gait. She drank coffee that morning she did not have any trouble.She was looking to set up decorations and could not with her left upper extremity but she did not did not think much of it. discussed with vascular surgery here in [facility] who suggest no active intervention and medical management and with Dr. Merna Mckeon at [facility] from neurology who was suggesting the same the patient will eventually need to follow-up as an outpatient and patient will need medical management currently. Frida Novoa patient reported 2 days prior that she noted weakness in her left hand and her noted that her speech sounded like she was drunk this resolved the next evening she had dysarthria but declined to go to the hospital following day she came in due to ongoing symptoms which included left arm weakness no seizure activity noted. Interestingly she has a history of amaurosis in the right eye is noted by Frida but had never had a carotid ultrasound Allergies Allergy/AdvReac Type Severity Reaction Status Date / Time meperidine [From Demerol] AdvReac Intermediate Nausea Verified 09/24/21 12:18 Home Medications Medication Instructions Recorded Confirmed Type aspirin 81 mg tablet,delayed 81 mg PO DAILY 09/24/21 09/24/21 History release levothyroxine 75 mcg tablet 75 mcg PO DAILY 09/24/21 09/24/21 History omega-3 fatty acids 1,000 mg PO BID 09/24/21 09/24/21 History polyethylene glycol 3350 17 gram 17 g PO DAILY 09/24/21 09/24/21 History oral powder packet (Miralax) triamcinolone acetonide 0.1 % 1 applic TOPICAL DAILY PRN 09/24/21 09/24/21 History lotion triamterene 37.5 1 cap PO DAILY 09/24/21 09/24/21 History mg-hydrochlorothiazide 25 mg capsule Patient History Medical History Constipation HTN (hypertension) Hypothyroidism Family History Father Hypertension Coronary heart disease Mother Stroke Social History Smoking Status: Former smoker Tobacco Type: Cigarettes Hx Alcohol Use: No Hx Substance Use: No Preferred Language: Libyan 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 CT head, CTA head/neck-There is loss of elizondo-white matter differentiation identified in the right frontotemporal region consistent with a large subacute right MCA territory infarct. No additional foci of acute ischemia are suspected. There is no hemorrhage or mass effect. 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 This extends from the carotid bulb to just below the [place] where there is reconstitution via retrograde flow. The proximal right MCA is patent, with occlusion of peripheral peripheral right MCA branches in the infarcted territory. The remaining intracranial vessels are patent. There is high-grade stenosis with near complete occlusion at the origin of the right external carotid artery. There is no evidence of hemodynamically significant stenosis in the neck within the left carotid system or the vertebral arteries. MRI brain-Redemonstration of large MCA territory infarct without hemorrhagic transformation. (1) Carotid artery stenosis Laterality: right Qualified Code(s): I65.21 - Occlusion and stenosis of right carotid artery (2) HTN (hypertension) Hypertension type: unspecified Qualified Code(s): I10 - Essential (primary) hypertension (3) CVA (cerebral vascular accident) CVA mechanism: other Qualified Code(s): I63.89 - Other cerebral infarction
[2021-09-25] MEDS: ASPIRIN 81 MG ECTAB PO SCH (15:53)
[2021-09-25] MEDS ORDERED: CLOPIDOGREL BISULFATE 75 MG TAB PO ONE (16:11)
--- NOTE | 2021-09-25 17:46 | Electrocardiogram Report ---
Test Reason : Blood Pressure : / mmHG Vent. Rate : 073 BPM Atrial Rate : 073 BPM P-R Int : 180 ms QRS Dur : 072 ms QT Int : 418 ms P-R-T Axes : 069 -39 069 degrees QTc Int : 460 ms Normal sinus rhythm Left axis deviation Nonspecific T wave abnormality Abnormal ECG When compared with ECG of 18-APR-2011 15:23, No significant change was found Confirmed by Juan C Jiménez ([id number]) on 09/25/2021 5:45:34 PM Referred By: Confirmed By:Juan C Jiménez
--- NOTE | 2021-09-25 18:24 | Hospitalist Progress Note ---
Date of Service September 25, 2021 Assessment & Plan (1) CVA (cerebral vascular accident): (2) Hypertension, essential: Plan: 71 year old female presenting to the ED 09/24 with slurred speech, left sided facial droop and mild weakness of LLE and found to have acute CVA Acute right MCA ischemic stroke- MRI, CT head, CTA head and neck reviewed. MRI with large MCA right stroke without hemorrhagic transformation. CTA head and neck with occlusion of right MCA branches. Echo with no shunt. Tele unremarkable. - Seen by neuro- Plan for Aspirin plavix for 21 days, then plavix for life; avoid hypotension - Continue statin to keep LDL<70 - Zio as outpatient - PT/OT - OP follow up with neuro in 4-6 weeks - Recommended not to drive until seen by neuro in office and cleared by ophthalmology - Periodic carotid ultrasound like yearly to exclude left ICA stenosis Essential HTN- BP reasonable. Avoid hypotension. Hold HCTZ for now Hypothyroidism- continue synthroid Dispo- PT did not recommend discharge today. Will have PT reevaluation tomorrow. Likely d/c tomorrow if remains stable and cleared by PT Update- Updated family at bedside Admission and Anticipated Discharge Date Admission Date: September 24, 2021 Subjective She was not happy that she was not allowed to eat or drink and her morning medications had not been administered. States her left hand numbness is improved. Speech is improved. Denies any new symptoms. Denies any weakness. Physical Exam Physical Exam: General: Lying comfortably in bed, not in distress, on room air Chest: Clear breath sounds bilaterally, no wheezes or crackles CVS: Regular rate and rhythm, normal heart sounds, no murmur Abdomen: Soft, non tender, not distended, normal bowel sounds Neuro: Awake, alert, oriented, conversing well. Strength 5/5, sensation intact, no pronator drift. Right ptosis, subtle flattening of left nasolabial fold Extremities: No cyanosis, clubbing or edema Results & Data Results & Data ([facility]) Vital Signs (Past 12 Hours) Vital Signs Temp Pulse Pulse Resp BP Pulse Ox 09/25/21 16:00 61 09/25/21 15:57 37.0 C 63 18 143/68 H 97 09/25/21 11:29 37.1 C 67 18 127/57 L 94 09/25/21 08:00 64 09/25/21 07:39 36.9 C 60 18 151/57 H 94 Laboratory Results Short CBC 09/25/21 Range/Units 06:10 WBC 7.18 (4.8-10.8) K/uL Hgb 12.6 (12.0-16.0) g/dL Hct 36.0 L (37-47) % Plt Count 240 (130-400) K/uL BMP 09/25/21 06:10 Sodium 136 Potassium 3.6 Chloride 105 Carbon Dioxide 24 BUN 13 Creatinine 0.58 L Glucose 99 Calcium 8.5 Liver Function 09/25/21 Range/Units 06:10 Total Bilirubin 0.5 (0.2-1.0) mg/dl AST 15 (13-39) U/L ALT 12 (7-52) U/L Alkaline Phosphatase 59 (34-104) U/L Albumin 3.5 (3.4-5.0) gm/dl Diagnostic Findings Brain MRI 09/24/21 14:14 MR brain wo con CLINICAL HISTORY: CVA TECHNIQUE: Multiplanar and multisequence MR images of the brain were obtained without intravenous contrast. Comparison: Comparison is made to CT head 09/24/2021 FINDINGS: Resected diffusion is seen in the right MCA territory. There is associated edema and mass effect without evidence of midline shift. Ex vacuo ventriculomegaly and sulcal enlargement is noted compatible with diffuse encephalomalacia. There is no evidence of acute intraparenchymal hemorrhage. No extra axial fluid collections are seen. The corpus callosum, pituitary gland, and cerebellar tonsils appear grossly unremarkable. Flow voids of the major intracranial arterial vessels are identified. The imaged portions of the paranasal sinuses, mastoid air cells, and orbits are unremarkable. IMPRESSION: Redemonstration of large MCA territory infarct without hemorrhagic transformation. ACT 112: Negative or not required by law. Electronically signed by: Conner Craven M.D. 09/25/2021 8:45 AM Medications Administered Current Inpatient Medications Acetaminophen (Acetaminophen 325 Mg Tab) 650 mg PO Q4H PRN PRN Reason: Pain or Fever Stop: 10/24/21 17:15 Al Hydrox/Mg Hydrox/Simethicone (Aluminum/Magnesium Susp 30 Ml Udc) 15 ml PO Q4H PRN PRN Reason: Dyspepsia Stop: 10/24/21 17:15 Aspirin (Aspirin 81 Mg Ectab) 81 mg PO QAM TOÑA Stop: 10/25/21 14:59 Last Admin: 09/25/21 15:53 Dose: 81 mg Documented by: Atorvastatin Calcium (Atorvastatin 40 Mg Tab) 40 mg PO HS [facility] Stop: 10/25/21 20:59 Clopidogrel Bisulfate (Clopidogrel Bisulfate 75 Mg Tab) 75 mg PO QAM [facility] Stop: 10/26/21 08:59 Fish Oil (Frederic-3 (Purified Fish Oil) 1 Gm Cap) 1 gm PO BID TOÑA Stop: 10/24/21 20:59 Last Admin: 09/25/21 08:56 Dose: Not Given Documented by: Levothyroxine Sodium (Levothyroxine Sodium 75 Mcg Tablet) 75 mcg PO DAILYBB [facility] Stop: 10/25/21 06:29 Last Admin: 09/25/21 05:30 Dose: Not Given Documented by: Magnesium Hydroxide (Magnesium Hydroxide Susp 30 Ml Udc) 30 ml PO Q12H PRN PRN Reason: Constipation Stop: 10/24/21 17:15 Polyethylene Glycol (Polyethylene (Miralax) 17 Gm Pack) 17 gm PO DAILY PRN PRN Reason: Constipation Stop: 10/24/21 17:15 Polyethylene Glycol (Polyethylene (Miralax) 17 Gm Pack) 17 gm PO DAILY TOÑA Stop: 10/25/21 08:59 Last Admin: 09/25/21 08:56 Dose: Not Given Documented by: (1) CVA (cerebral vascular accident) CVA mechanism: other Qualified Code(s): I63.89 - Other cerebral infarction
[2021-09-25] MEDS ORDERED: ATORVASTATIN 40 MG TAB PO SCH (21:00)
--- NOTE | 2021-09-25 22:24 | Electrocardiogram Report ---
Test Reason : Blood Pressure : / mmHG Vent. Rate : 068 BPM Atrial Rate : 068 BPM P-R Int : 180 ms QRS Dur : 072 ms QT Int : 456 ms P-R-T Axes : 070 -36 059 degrees QTc Int : 484 ms Normal sinus rhythm Left axis deviation Prolonged QT Nonspecific T wave abnormality Abnormal ECG When compared with ECG of 24-SEP-2021 09:52, QT has lengthened Confirmed by Juan C Jiménez ([id number]) on 09/25/2021 10:24:08 PM Referred By: REFERRED SELF Confirmed By:Juan C Jiménez
[2021-09-26] MEDS: LEVOTHYROXINE SODIUM 75 MCG TABLET PO SCH (06:14)
[2021-09-26] MEDS: OMEGA-3 (PURIFIED FISH OIL) 1 GM CAP PO SCH (08:30)
[2021-09-26] MEDS: ASPIRIN 81 MG ECTAB PO SCH (08:30)
[2021-09-26] MEDS: POLYETHYLENE (MIRALAX) 17 GM PACK PO SCH (08:31)
[2021-09-26] MEDS ORDERED: CLOPIDOGREL BISULFATE 75 MG TAB PO SCH (09:00)
--- NOTE | 2021-09-26 09:18 | Progress Notes ---
DATE OF SERVICE: 09/26/2021 SUBJECTIVE: Seeing Mrs. Snow in followup of right internal carotid occlusion with a partial right MC A infarction. She has not had any change in her symptoms. She does not have a headache. OBJECTIVE: On exam, she is awake and alert, oriented. No aphasia, no right/left confusion. No visu al field cut. No visual extinction. Marginal flattening of the left nasolabial fold. No dysarthria. Mild weakness of the left upper extremity with a minor left drift. Left lower extremity is nearly full. IMPRESSION AND PLAN: Right internal carotid occlusion. Continue dual antiplatelet therapy for 21 da ys and then Plavix monotherapy. Continue good control of lipids. Gradual reduction of blood pressur e over time. Avoid hypotension given the carotid occlusion. The patient may need inpatient rehabili tation, which I defer to OT and PT. The patient should see us in followup, at which time will order a panel monitor. She should see ophthalmology in the interim as well, as an outpatient to determin e if her visual howell are intact, or if there is any visual neglect. We will sign off. Job ID: [id number]
--- NOTE | 2021-09-26 10:43 | Electrocardiogram Report ---
Test Reason : Blood Pressure : / mmHG Vent. Rate : 059 BPM Atrial Rate : 059 BPM P-R Int : 188 ms QRS Dur : 074 ms QT Int : 466 ms P-R-T Axes : 068 -26 067 degrees QTc Int : 461 ms Sinus bradycardia Abnormal ECG When compared with ECG of 25-SEP-2021 06:33, No significant change was found Confirmed by Edison Khan ([id number]) on 09/26/2021 10:43:32 AM Referred By: REFERRED SELF Confirmed By:Alonzo Khan
--- NOTE | 2021-09-26 12:33 | Electrocardiogram Report ---
Test Reason : Blood Pressure : / mmHG Vent. Rate : 060 BPM Atrial Rate : 060 BPM P-R Int : 192 ms QRS Dur : 076 ms QT Int : 466 ms P-R-T Axes : 066 -23 064 degrees QTc Int : 466 ms Normal sinus rhythm When compared with ECG of 26-SEP-2021 06:09, No significant change was found Confirmed by Edison Khan ([id number] on 09/26/2021 12:33:24 PM Referred By: REFERRED SELF Confirmed By:Alonzo Khan
--- NOTE | 2021-09-26 16:52 | Discharge Summary ---
Date of Service September 26, 2021 Admission HPI Per Admitting Provider Chief Complaint: Slurred speech and stumbling gait Primary Care Provider: Davie Hoyt MD Patient is a 71-year-old female here in the company of her son with a past medical history of hypertension hypothyroidism constipation amaurosis fugax of the right eye presenting after brought in by the patient's son. Patient noted to have slurred speech left-sided facial droop mild weakness of the left lower extremity. Patient evaluated from the stroke standpoint noted to have a significant CVA on the left MCA territory as well as noted to have right ICA stenosis distally on CTA. Otherwise patient last known well 7 PM yesterday evening when per patient was shopping. She had significant headache over her right side of the forehead after which patient went home with her did have mild slowness of her speech however she wanted to sleep it off. She woke up in the morning with worsening slurred speech. Patient wanted to go to work today she drove herself to the [employer] lot where her son was able to catch up to her after hearing about patient's symptoms. As per the patient's son patient was severely slurred and had a drunken gait because of this he encouraged her to come to the hospital which patient did. Otherwise patient state that she drank coffee in the morning she did not have any trouble. States that she did notice today in the morning that she was looking to set up decorations and she cannot do that properly from her left upper extremity but she did not did not think much of it. States she just upset her and herself being in the hospital. Denies any associated chest pain lightheadedness palpitations. Denies any nausea vomiting or diarrhea denies any dysuria. States she has ambulated and to her she seems fine. Although noted to be having a drunken gait as per the patient's son at bedside. Discussed with vascular surgery here in [facility] who suggest no active intervention and medical management. Otherwise also discussed with Dr. Merna Mckeon at [facility] from neurology who was suggesting the same the patient will eventually need to follow-up as an outpatient and patient will need medical management currently. Discussed with patient's at bedside as well as patient's son and the patient herself about the current plan and management and are in agreement for further care here in the hospital. Admission Exam Per Admitting Provider Constitutional:WD/WN, vitals as abovewith slurred speech noted ENMT: external ear and nose normal, oropharynx normal Neck: trachea midline, no thyromegaly Respiratory: normal respiratory effort, lungs clear to auscultationAuscultation:no rhonchi and no wheezes Cardiovascular:RRR, 2 x 6 systolic ejection murmur most prominent in the aortic area, no edemaHeart Sounds:no murmur Gastrointestinal (Abdomen):normal bowel sounds, soft, nontender, no hepatosplenomegaly Musculoskeletal:no cyanosis or clubbing, extremities motor strength 5/5all extremities except Lt LE 4/5 Skin: no rashes, warm and dry Neurologic: Lt sided static facial droop, bilat, sensation intact and PERRL, EOMI, accommodation nl. Dysarthria noted Psychiatric: A+Ox3, euthymic affect Genitourinary:Not assessed Lymphatic: no cervical or axillary lymphadenopathy Principal Diagnosis acute Rt MCA stroke Discharge Exam General: Lying comfortably in bed, not in distress, on room air Chest: Clear breath sounds bilaterally, no wheezes or crackles CVS: Regular rate and rhythm, normal heart sounds, no murmur Abdomen: Soft, non tender, not distended, normal bowel sounds Neuro: Awake, alert, oriented, conversing well. Strength 5/5, sensation intact, no pronator drift. Right ptosis, subtle flattening of left nasolabial fold Extremities: No cyanosis, clubbing or edema Discharge Data Allergies Allergy/AdvReac Type Severity Reaction Status Date / Time meperidine [From Demerol] AdvReac Intermediate Nausea Verified 09/24/21 12:18 Consultations 09/24/21 12:39 ED Decision to Admit Stat 09/24/21 17:16 Consult Neurology Routine Ordered Studies 09/24/21 10:32 CT angio head w con Stat CT angio neck with con Stat CT head/brain wo con Stat 09/24/21 14:14 MR brain wo con Routine Hospital Course (1) CVA (cerebral vascular accident): (2) Hypertension, essential: 71 year old female presenting to the ED 09/24 with slurred speech, left sided facial droop and mild weakness of LLE and found to have acute CVA Acute right MCA ischemic stroke- MRI, CT head, CTA head and neck reviewed. MRI with large MCA right stroke without hemorrhagic transformation. CTA head and neck with occlusion of right MCA branches. Echo with no shunt. Tele unremarkable. - Seen by neuro- Plan for Aspirin plavix for 21 days, then plavix for life; avoid hypotension - Continue high intensity statin to keep LDL<70 - Zio as outpatient - OP follow up with neuro in 4-6 weeks - Recommended not to drive until seen by neuro in office and cleared by ophthalmology - Per neuro, periodic carotid ultrasound like yearly to exclude left ICA stenosis. Follow up with vascular surgery - Seen by PT/OT- patient declined home therapy or OP therapy. Essential HTN- BP rebounded. continue home meds Hypothyroidism- continue synthroid Update- Updated son over phone and answered all questions Total Time Total Time Spent Total Time Spent (In Minutes): 35 Discharge Plan Discharge Items Patient Disposition: Home - Self-Care Reason For Visit: CVA Discharge Diagnosis: acute right MCA stroke Activity: As commented below Activity Comment: We recommend you not to drive until cleared by eye doctor or neurology Non-emergency contact: Primary Care Provider and Neurologist Call non-emergency contact if: you have any medication questions and your symptoms worsen Follow-up/Referrals: Davie Hoyt MD [Primary Care Provider] - Diet: Regular Addtl Attending Provider Instructions: Continue aspirin and plavix for 20 days after which stop aspirin and continue plavix only indefinitely Continue lipitor Follow up with neurology and they will order court monitor fo you Follow up with eye doctor (ophthalmology) as soon as possible. We recommend you not to drive until cleared by them You can see the vascular doctor in [place]. Pending Studies at Discharge: No Stand-Alone Forms: My [facility] Pairy, Smoking Cessation Medications and DC Order Prescriptions: New atorvastatin 40 mg Tablet 40 mg PO HS Qty: 30 RF: 0 clopidogrel 75 mg Tablet 75 mg PO QAM Qty: 30 RF: 0 Continued polyethylene glycol 3350 [Miralax] 17 gram Powder In Packet 17 g PO DAILY RF: 0 triamterene-hydrochlorothiazid 37.5-25 mg capsule 1 cap PO DAILY RF: 0 levothyroxine 75 mcg tablet 75 mcg PO DAILY RF: 0 triamcinolone acetonide 0.1 % lotion 1 applic TOPICAL DAILY PRN (Reason: Ear canal) RF: 0 omega-3 fatty acids Capsule 1,000 mg PO BID RF: 0 aspirin 81 mg Tablet,Delayed Release (Dr/Ec) 81 mg PO DAILY Qty: 0 RF: 0 Discharge Orders: Discharge Order (Routine); Ordered 09/26/21 Ordered By: Natalio Ni/Other Patient Handouts: Prediabetes, Stroke Brain Body Effects, Stroke: Taking Medicines, 5 Steps for Eating Healthier, Stroke: Resources and Support, Discharge Instructions for Stroke, Stroke Self Care After, Stroke Prevention Activity, Carotid Artery Disease Admission Data Admit Date/Time: 09/24/21 12:59 Attending Provider: Natalio Anna Admit Provider: Luis Bergeron Primary Care Provider: Davie Hoyt Other Providers: Yesica Hoyt ; Joby Guerrero Other Interventions: Discharge Summary Assessment (RN) Last Done: 09/26/21 13:34
== END 2021-09-26 15:24 | disposition home or self-care (01) | DRG 65 ==
LOC: ED 09:44 → SUATTDRO 12:59 → 2S 12:59